=== PATIENT | female | born 1950 | race Caucasian/White ===

== ENCOUNTER 2017-09-11 09:44 | Day surgery (SDC) | payer MEDICARE, OTHER ==
[~2017-09-11] VITALS: Ht 167.6 cm; Wt 92.1 kg
[~2017-09-11 09:44] MED LIST: ACAI500 MG; ASPI81CH; ATECHL; CONTRAVE ER 8-1 EACH; CYAN500; CYCL10; DOCU100; FISH OIL 1,0001 EAC1; FURO40; GLUC500; Hair, Skin & N1 EACH; L-Lysine500 M1; LUTEIN20 MG; METAMUCIL0.4 GM; Maxalt10 MG; POTA10T; PRAV20; UBID10
== END 2017-09-11 11:50 | disposition home or self-care (01) ==
LOC: ORSCSDS 09:44
PROVIDERS: Internal Medicine Gastroenterology
PROC: 0DBH8ZX Excision of Cecum, Via Natural or Artificial Opening Endoscopic, Diagnostic (ICD-10-PCS; principal; 2017-09-11 11:00)
PROC: 0DBL8ZX Excision of Transverse Colon, Via Natural or Artificial Opening Endoscopic, Diagnostic (ICD-10-PCS; principal; 2017-09-11 11:00)
DX: Z12.11 Encounter for screening for malignant neoplasm of colon (principal); D12.0 Benign neoplasm of cecum; D12.3 Benign neoplasm of transverse colon; K64.8 Other hemorrhoids; K21.9 Gastro-esophageal reflux disease without esophagitis; I10 Essential (primary) hypertension; E66.9 Obesity, unspecified; Z68.32 Body mass index [BMI] 32.0-32.9, adult; F17.210 Nicotine dependence, cigarettes, uncomplicated; Z79.899 Other long term (current) drug therapy
CPT/HCPCS: 88305; J7120

== ENCOUNTER → 2022-09-22 | Outpatient (CLI) | payer MEDICARE, OTHER ==
[2022-09-22 14:37] LABS: Source, Urine Voided
[2022-09-22 15:46] LABS: Appearance, Urine Clear (Clear); Bilirubin, Urine Neg (Neg); Blood, Urine Neg (Neg); Color, Urine Yellow (P-Yellow); Glucose Qualitative, Urine Neg (Neg); Ketones, Urine Neg (Neg); Leukocyte Esterase, Urine Neg (Neg); Nitrite, Urine Neg (Neg); Protein, Urine Neg (Neg); Urobilinogen, Urine NORM (Normal)
[2022-09-22 16:21] LABS: Creatinine, Urine Random 79.6 mg/dL (27.00-270.00); Protein, Urine Random 8.6 mg/dL (0.0-11.9); Protein/Creat Ratio, Ur Random 0.1
== END | disposition home or self-care (01) ==
LOC: LAB SHORT 14:35
PROVIDERS: Internal Medicine Nephrology
DX: N18.31 Chronic kidney disease, stage 3a (principal)
CPT/HCPCS: 81003; 82570; 84156